=== PATIENT | female | born 2000 ===

== ENCOUNTER 2024-08-08 10:29 | Outpatient (CLI) | payer OTHER | END 2024-08-08 10:30 | disposition home or self-care (01) | LOC: PRENATAL 10:29 | PROVIDERS: ATTEND Obstetrics & Gynecology Maternal & Fetal Medicine | DX: O36.80X0 Pregnancy with inconclusive fetal viability, not applicable or unspecified (principal); Z36.82 Encounter for antenatal screening for nuchal translucency; O98.919 Unspecified maternal infectious and parasitic disease complicating pregnancy, unspecified trimester; Z3A.12 12 weeks gestation of pregnancy ==

== ENCOUNTER 2024-09-30 15:05 | Outpatient (CLI) | payer OTHER | END 2024-09-30 15:06 | disposition home or self-care (01) | LOC: PRENATAL 15:05 | PROVIDERS: ATTEND Obstetrics & Gynecology Maternal & Fetal Medicine | DX: O44.00 Complete placenta previa NOS or without hemorrhage, unspecified trimester (principal); O98.919 Unspecified maternal infectious and parasitic disease complicating pregnancy, unspecified trimester; Z14.8 Genetic carrier of other disease; Z3A.21 21 weeks gestation of pregnancy ==

== ENCOUNTER → 2024-12-23 09:57 | Outpatient (CLI) | payer OTHER | END | disposition home or self-care (01) | LOC: PRENATAL 09:57 | PROVIDERS: ATTEND Obstetrics & Gynecology Maternal & Fetal Medicine | DX: O26.849 Uterine size-date discrepancy, unspecified trimester (principal); O36.8130 Decreased fetal movements, third trimester, not applicable or unspecified; O98.919 Unspecified maternal infectious and parasitic disease complicating pregnancy, unspecified trimester; Z14.8 Genetic carrier of other disease; Z3A.32 32 weeks gestation of pregnancy ==